=== PATIENT | female | born 1935 | race Caucasian/White ===

== ENCOUNTER 2021-07-15 08:26 | Emergency (ER) | payer MEDICARE, OTHER ==
[~2021-07-15] VITALS: Ht 160 cm; Wt 63.6 kg
[2021-07-15 08:45] VITALS: BP 180/77
== END 2021-07-15 12:36 | disposition home or self-care (01) ==
LOC: ER 08:27
DX: M25.561 Pain in right knee (principal)
CPT/HCPCS: 29505; 99282; 99283

== ENCOUNTER 2023-07-14 05:29 | Emergency (ER) | payer MEDICARE, OTHER ==
[~2023-07-14] VITALS: Ht 157.5 cm; Wt 63.6 kg
[2023-07-14 05:37] VITALS: BP 164/93; PULSE 65; O2SAT 100
[2023-07-14 05:54] VITALS: TEMP 97.3
[2023-07-14] MEDS ORDERED: traMADol 50MG tablet PO ONE (07:05)
[2023-07-14] MEDS ORDERED: TRAM50TA2 PO (07:36)
[2023-07-14 07:40] VITALS: RESP 18
== END 2023-07-14 07:54 | disposition home or self-care (01) ==
LOC: ER 05:29
DX: M25.511 Pain in right shoulder (principal); M54.9 Dorsalgia, unspecified; W19.XXXA Unspecified fall, initial encounter; Y93.89 Activity, other specified; Y92.89 Other specified places as the place of occurrence of the external cause; Y99.8 Other external cause status
CPT/HCPCS: 72070; 73030; 99284